=== PATIENT | female | born 1975 | race Two or more races ===

== ENCOUNTER 2018-04-15 22:10 | Emergency (ER) | payer OTHER ==
[~2018-04-15] VITALS: Ht 160 cm; Wt 96.2 kg
[~2018-04-15 22:10] MED LIST: DOLOGESIC CAPLE1 TAB PO; LOTRISONE CREAM45 GM TP; SEPTRA DS TABLE1 TAB PO; ZITROMAX; [UNRECOGNIZED DRUG - OTHER]
[2018-04-15] MEDS ORDERED: SYNTHROID150 MCG (22:33)
[2018-04-15] MEDS ORDERED: GLUCOPHAGE XR750 MG (22:34)
[2018-04-15] MEDS ORDERED: TOPROL XL100 MG (22:34)
[2018-04-15] MEDS ORDERED: CRESTOR5 MG (22:35)
== END 2018-04-16 05:31 | disposition home or self-care (01) ==
LOC: ER 22:10
DX: S93.492A Sprain of other ligament of left ankle, initial encounter (principal); X50.3XXA Overexertion from repetitive movements, initial encounter; Y93.89 Activity, other specified; Y92.89 Other specified places as the place of occurrence of the external cause; Y99.8 Other external cause status

== ENCOUNTER 2018-12-28 16:26 | Emergency (ER) | payer OTHER ==
[~2018-12-28] VITALS: Ht 160 cm; Wt 101.6 kg
[~2018-12-28 16:26] MED LIST changes: +CRESTOR5 MG; +GLUCOPHAGE XR750 MG; +SYNTHROID150 MCG; +TOPROL XL100 MG
== END 2018-12-28 18:32 | disposition home or self-care (01) ==
LOC: ER 16:26
DX: S00.83XA Contusion of other part of head, initial encounter (principal); W21.06XA Struck by volleyball, initial encounter; Y93.68 Activity, volleyball (beach) (court); Y92.89 Other specified places as the place of occurrence of the external cause; Y99.8 Other external cause status

== ENCOUNTER 2025-02-13 07:27 | Outpatient (CLI) | payer OTHER | END 2025-02-13 07:30 | disposition home or self-care (01) | LOC: SONOGRAMA 07:27 | PROVIDERS: ATTEND Internal Medicine Gastroenterology | DX: R10.13 Epigastric pain (principal) ==